=== PATIENT | male | born 1995 | race Caucasian/White ===

== ENCOUNTER 2021-09-15 18:32 | Emergency (ER) | payer OTHER ==
[~2021-09-15] VITALS: Ht 172.7 cm; Wt 78.9 kg
[2021-09-15] MEDS ORDERED: EMTR1TAB13 PO (19:41)
--- NOTE | 2021-09-15 19:55 | NUR ---
DR. BARNEY AT BEDSIDE, MSE IN PROGRESS.
--- NOTE | 2021-09-15 20:14 | NUR ---
Patient discharged to home in stable condition. Written and verbal after care instructions given. Patient verbalizes understanding of instructions. Stressed follow up or return to ER for worsening s/s. Steady gait, denies any pain/discomfort upon discharge. No SOB or labored breathing, afebrile. No N/V/D. Denies REYES/dizzyness/blurry vision, eyes PERRLA.
[2021-09-15 20:15] VITALS: BP 115/57
== END 2021-09-15 20:15 | disposition home or self-care (01) ==
LOC: ER 18:36
DX: R23.1 Pallor (principal); Z86.16 Personal history of COVID-19; Z79.899 Other long term (current) drug therapy
CPT/HCPCS: A4663